=== PATIENT | female | born 1980 ===

== ENCOUNTER 2017-12-14 08:21 | Day surgery (SDC) | payer BC ==
--- NOTE | 2017-12-14 05:07 | PDGENHP ---
History and Physical History and Physical: Assessment and Plan: 1. Endometriosis of pelvic peritoneum Lorrie has laparoscopic proven stage IV endometriosis causing dysmenorrhea and pelvic pain. She and her would like to try to have one more child. As a result, she would like to undergo conservative surgery. This will be a robotic excision of endometriosis. She would like to schedule this on a Tuesday in November at [facility]. She will return for a preoperative appointment. 2. Dysmenorrhea Subjective: Patient ID: Lorrie Davis is a 36 y.o. female who presents to [facility] for endometriosis. BILLIE Mccallum is a 36-year-old para 1 woman who presents to discuss endometriosis. Her symptoms began around the age of 26. She was having heavy and prolonged menses as well as severe dysmenorrhea. In August 2015 Dr. Chapito Barnes in [place] performed a diagnostic laparoscopy. She was found to have cul-de-sac obliteration and bilateral ovarian endometriomas which were drained. Not surprisingly, postoperatively she continued to suffer from severe pain. Her cycles are regular every month. She will bleed 4-5 days. 3 of the days are heavy when she will change her menstrual cup 3 times per day. The pain is somewhat worse on the left than the right. It previously start several days before her menses and continues to have her flow. Now she has midcycle pain as well. Fortunately she has no significant dyspareunia or dyschezia. She does have some pain down her right thigh as well as her low back. She and her live in [place]. Her one child was born by section. She has had a prior appendectomy. PastMedicalHistory Past Medical History: Diagnosis Date Arthritis Endometriosis Psoriasis PastSurgicalHistory Past Surgical History: Procedure Laterality Date APPENDECTOMY 1990 SECTION 2011 PELVIC LAPAROSCOPY 2014 CURRENT MEDICATIONS: Current Outpatient Prescriptions Medication Sig HYDROcodone-acetaminophen (NORCO) 5-325 mg This med has acetaminophen (APAP ). NAPROXEN SODIUM (ALEVE PO) No current facility-administered medications for this visit. ALLERGIES: Chlorhexidine; Codeine; and Levofloxacin I have reviewed, verified and agree with the past medical, surgical, , family, social and ROS history as documented by the RN today. Review of Systems Objective: Vital Signs: Visit Vitals BP 114/68 Pulse 79 Temp 37 C (98.6 F) (Temporal Artery) Resp 14 Ht 1.6 m (5' 3") Wt 60.1 kg (132 lb 6.4 oz) SpO2 98% BMI 23.45 kg/m2 Physical Exam Gen: This is an alert, well developed woman in no distress. Neuro: She moves all extremities. Psych: She is appropriate, oriented, with normal affect. Neck: No thyroid enlargement, adenopathy, or tenderness. Lungs: Clear to ascultation, no wheezes or rales. Heart: Regular rate and rhythm without obvious murmurs. Abdomen: Soft, non-tender, without guarding, rebound, or masses. Extremities: No edema or cyanosis. Pelvic: Normal external genitalia. Non-gaping introitus, vagina without discharge, adequately estrogenized, no significant prolapse. Cervix without lesions or discharge. Uterus normal sized. The uterus is retroverted with no mobility. She is tender surrounding the cervix along the posterior uterus and throughout the posterior cul-de-sac. She has no significant prolapse. DATA: I have reviewed patient's outside medical records. Summary findings include her operative note with stage IV endometriosis. TIME/COMMUNICATION: I personally spent a total of 50 minutes. Of that 40 minutes was counseling/ coordination of patient's care. See my note above for details. Jason Kc MD Board Certified Female Pelvic Medicine and Reconstructive Surgery Director of Minimally Invasive Gynecologic Surgery, [facility] Minimally Invasive Gynecologic Surgery Designee
[~2017-12-14 08:21] MED LIST: ACETAMINOPHEN 500 MG TAB PO ONE; GABAPENTIN 400 MG CAP PO ONE; PHENAZOPYRIDINE HCL 200 MG TAB PO ONE; ceFAZolin 2 GM/SWFI 2 GM/20 ML SYR IVP ONE
[2017-12-14] MEDS ORDERED: LIDOCAINE 1% 2 ML INJ ID PRN (08:41)
[2017-12-14] MEDS ORDERED: LR 1,000 ML IV ONE (08:41)
[2017-12-14] MEDS ORDERED: SCOPOLAMINE HYDROBROMIDE 1 MG/3 DAYS PATCH TD ONE (11:35)
[2017-12-14] MEDS ORDERED: fentaNYL 100 MCG/2 ML INJ ONE (11:37)
[2017-12-14] MEDS ORDERED: ONDANSETRON 4 MG/2 ML VIAL ONE (11:37)
[2017-12-14] MEDS ORDERED: HYDROmorphONE/DILAUDID 2 MG/ML INJ ONE (11:37)
[2017-12-14] MEDS ORDERED: DEXAMETHASONE 4 MG/ML VIAL ONE (11:37)
[2017-12-14] MEDS ORDERED: ROCURONIUM 50 MG/5 ML VIAL ONE ×2 (11:37→13:44)
[2017-12-14] MEDS ORDERED: PROPOFOL 200 MG/20 ML VIAL ONE (11:38)
[2017-12-14] MEDS ORDERED: BUPIVACAINE/EPI 0.5% 30 ML SDV ONE (12:00)
[2017-12-14] MEDS ORDERED: METHYLENE BLUE 0.5% 50 MG/10 ML AMP ONE (12:08)
[2017-12-14] MEDS ORDERED: fentaNYL 100 MCG/2 ML INJ IVP PRN (12:13)
[2017-12-14] MEDS ORDERED: MEPERIDINE 25 MG/ML SYR IVP PRN (12:13)
[2017-12-14] MEDS ORDERED: NS 500 ML IV PRN (12:13)
[2017-12-14] MEDS ORDERED: NALOXONE HCL 0.4 MG/ML INJ IVP PRN (12:13)
[2017-12-14] MEDS ORDERED: METOCLOPRAMIDE 10 MG/2 ML VIAL IVP PRN (12:13)
[2017-12-14] MEDS ORDERED: LR 500 ML IV PRN (12:13)
--- NOTE | 2017-12-14 12:13 | PDANEPAE ---
ANE History of Present Illness 37 year old otherwise healthy female with pelvic pain. She has had anesthesia in the past without difficulty. ANE Past Medical History - Cardiovascular History Hx Hypertension: No Hx Arrhythmias: No Hx Chest Pain: No Hx Coronary Artery / Peripheral Vascular Disease: No Hx CHF / Valvular Disease: No Hx Palpitations: No - Pulmonary History Hx COPD: No Hx Asthma/Reactive Airway Disease: No Hx Recent Upper Respiratory Infection: No Hx Oxygen in Use at Home: No Hx Sleep Apnea: No Sleep Apnea Screening Result - Last Documented: Negative Pulmonary History Comment: ALLERGIES SEASONAL - Neurologic History Hx Cerebrovascular Accident: No Hx Seizures: No Hx Dementia: No - Endocrine History Hx Diabetes: No - Renal History Hx Renal Disorders: No Renal History Comment: KIDNEY STONES IN PAST - NOT IN 5 YRS - Liver History Hx Hepatic Disorders: No Hepatic History Comment: ADHESIONS - LIVER - Neurological & Psychiatric Hx Hx Neurological and Psychiatric Disorders: No - Cancer History Hx Cancer: No - Congenital Disorder History Hx Congenital Disorders: No - GI History Hx Gastrointestinal Disorders: No - Other Health History Other Health History: PSORIASIS. ANEMIA IN PAST W/ MENSTRUAL CYCLE - Chronic Pain History Chronic Pain: Yes (MENSTRUAL PAIN) - Surgical History Prior Surgeries: APPENDECTOMY. C SECTION. LAPAROSCOPY ANE Review of Systems Review of Systems: - Exercise capacity METS (RN): 5 METS ANE Patient History - Allergies Allergies/Adverse Reactions: chlorhexidine Allergy (Verified 10/27/17 14:55) HIVES, SWELLING AT SITE OF APPLICATION levofloxacin [From Levaquin] Allergy (Verified 10/27/17 14:55) Rash - Home Medications Home Medications: NK [No Known Home Meds] 10/27/17 [Last Taken Unknown] - NPO status NPO Since - Liquids (Date): 12/13/17 NPO Since - Liquids (Time): 22:00 NPO Since - Solids (Date): 12/13/17 NPO Since - Solids (Time): 19:30 - Smoking Hx Smoking Status: Never smoked - Family Anes Hx Family Hx Anesthesia Complications: NEG ANE Labs/Vital Signs - Vital Signs Blood Pressure: 120/71 Heart Rate: 70 Respiratory Rate: 16 O2 Sat (%): 96 Height: 157.48 cm Weight: 61.235 kg ANE Physical Exam - Airway Neck exam: FROM Mallampati Score: Class 1 Mouth exam: normal dental/mouth exam, small mouth opening - Pulmonary Pulmonary: no respiratory distress - Cardiovascular Cardiovascular: regular rate and rhythym - ASA Status ASA Status: I
[2017-12-14 15:00] VITALS: TEMP 98.1
[2017-12-14 15:13] VITALS: BP 141/96; PULSE 77; RESP 14; O2SAT 94
--- NOTE | 2017-12-14 20:59 | GOP ---
[f rep st] OPERATIVE REPORT DATE OF OPERATION: 12/14/2017 SURGEON: Jason Kc MD FISHING TACKLE REPAIRER: Luanne Rain CFA. ANESTHESIA: General. PREOPERATIVE DIAGNOSIS: 1. Stage IV endometriosis. 2. Pelvic pain. 3. Dysmenorrhea. 4. Dyschezia. POSTOPERATIVE DIAGNOSIS: 1. Stage IV endometriosis. 2. Pelvic pain. 3. Dysmenorrhea. 4. Dyschezia. 5. Left ovarian endometrioma. PROCEDURE PERFORMED: 1. Robotic-assisted laparoscopic excision of endometriosis throughout the posterior cul-de-sac and b ilateral ovarian fossae. 2. Excision of left ovarian endometrioma. 3. Partial left oophorectomy. 4. Bilateral ureterolysis. 5. Excision of sigmoid lesion. 6. Excision of rectal lesions. 7. Bilateral ovarian pexy. FINDINGS: SPECIMENS: 1. Pelvic peritoneum with endometriosis. 2. Left ovarian endometrioma. 3. Portion of left ovary. 1. Sigmoid and rectal lesions. 4. ESTIMATED BLOOD LOSS: 50 mL. DESCRIPTION OF PROCEDURE: The patient was taken the operating room where she was identified. Genera l anesthesia was administered and found to be adequate. She was placed in the lithotomy position and prepared and draped in normal sterile fashion. A Hulka tenaculum was placed in the uterus for manip ulation. A Camara catheter was then placed. A 1 cm infraumbilical incision was made with a scalpel. The Veress needle with CO2 gas flowing was a dvanced into the peritoneal cavity. The abdomen was then insufflated with carbon dioxide gas. The 1 2 mm trocar followed by the laparoscope were then inserted. The upper abdomen was unremarkable. The re was no evidence of any endometriosis on either diaphragm, the stomach, spleen, liver or upper abdo mariusz bowel. Two lateral ports were then placed on either side under direct visualization. She then was positioned in Trendelenburg position and the da Dariela robot docked on the left side. The instru ments were then brought into the abdominal cavity under direct visualization. The patient had significant endometriosis as well as adhesions throughout the pelvis. The left ovary was enlarged, containing a large endometrioma. The ovary was adherent to the posterior lateral aspe cts of the uterus. The lateral pelvic sidewall overlying the left ureter was also adherent to the si gmoid colon. The sigmoid colon also was adherent to the posterior aspect of the uterus as well as th e right tube and ovary. The right tube and ovary were adherent both to the right pelvic sidewall as well as the right posterior lateral aspect of the uterus. There were multiple lesions of endometrios is on the distal sigmoid as well as rectum; however, the main aspect was where the rectum was adheren t to the posterior cervix. There were several lesions in the anterior cul-de-sac. The anterior cul- de-sac also had adhesions from her prior section. The proximal sigmoid colon was taken off the left pelvic brim as well as the left ovary. The left ov jermaine was gently dissected free of the uterus, bowel and pelvic sidewall. The endometrioma was then co mpletely dissected free of the left ovary and sent to Pathology for permanent section. It had stretc hed out the left ovary significantly with only a thin layer of stroma in several areas. This was not felt to be viable tissue as a result, a portion of the left ovary was excised. The right ovary had endometriosis which was excised and fulgurated. Once both ovaries had been treated, a bilateral ovar christen pexy was performed by attaching each ovary to its ipsilateral round ligament near the internal in guinal ring. The lesions on the sigmoid colon and proximal rectum were excised. One in each area, e xtended for approximately 50% into the muscularis. The rectum was then gently dissected off the post erior cervix where it was extremely adherent. The nodule in this area was excised and sent to Pathol dale. The entire posterior cul-de-sac and peritoneum with overlying endometriosis was completely exci sed from the distal rectum up to the cervix. The entire pelvis had a thick rind of scarring of the p eritoneum with endometriosis. Finally, the entire ovarian fossa peritoneum bilaterally was excised. This required a bilateral ureterolysis. The peritoneum at the pelvic brims had already been incised . The ureters were gently dissected free. They were lateralized from the pelvic brim all the way do wn to the bladder. Once this was accomplished, the entire peritoneum with endometriosis was complete ly excised and sent to Pathology for permanent section. There were multiple filmy areas of endometri osis on the serosal surface of the uterus which was fulgurated. The lesions in the anterior cul-de-s ac were then removed. The pelvis was then copiously irrigated with sterile saline, and hemostasis wa s present. There were multiple raw areas of denuded pelvic organs after removing the peritoneum. Ar ista hemostatic powder was then sprayed throughout the pelvis to ensure hemostasis. I had planned to perform a bilateral tubal perfusion study. However, I was concerned that the methylene blue and marino ine instilled into the posterior cul-de-sac may interfere with the functioning of the Jerry, and the refore that procedure was not performed. I plan on ordering a hysterosalpingogram postoperatively wh en she recovers. The robot was then undocked. The fascia was closed with 0 Vicryl, skin with 4-0 Monocryl and surgica l adhesive. Anesthesia was reversed and the patient taken to PACU awake, in stable condition. COMPLICATIONS: None. DISPOSITION: Patient stable to PACU. /[id number]/MODL
== END 2017-12-14 16:39 | disposition home or self-care (01) ==
LOC: FSGY 08:21
PROVIDERS: ATTEND Obstetrics & Gynecology
DX: N80.3 Endometriosis of pelvic peritoneum (principal); N94.5 Secondary dysmenorrhea; R10.2 Pelvic and perineal pain
CPT/HCPCS: 58661; 58662; C1765; J0690; J1100; J1170; J2405; J2704; J3010; Q9968